=== PATIENT | female | born 1950 | race African-American/Black ===

== ENCOUNTER 2019-05-09 08:11 | Outpatient (CLI) | payer MEDICARE ==
--- NOTE | 2019-05-09 11:46 | PET Report ---
PET CT WHOLE BODY HISTORY: Right upper lobe lung mass. COMPARISON: No relevant comparative imaging. TECHNIQUE: F-18 FDG was administered via the left antecubital fossa. 75 minutes later, the patient u nderwent dedicated PET CT imaging from the skull base through the feet utilizing an integrated PET CT scanner. CT transmission images acquired are non-contrast and low dose. CT transmission images are acquired for lesion localization and attenuation correction. The patient's blood sugar level was doc umented to be 102 mg/dL. RADIOPHARMACEUTICAL: 13.601 mCi of F-18 FDG. FINDINGS: HEAD AND NECK: Physiologic activity demonstrated. No suspicious adenopathy. CHEST: Irregular FDG avid posterior right upper lobe lung mass measures 2.1 x 1.0 cm image 70, series 2. SUV max is 1.99. No other lung nodule or mass. No lymphadenopathy. ABDOMEN AND PELVIS: Physiologic activity in the liver, spleen, kidneys, collecting system and bowel. No suspicious adenopathy. MARROW: Physiologic activity demonstrated. No suspicious bone lesion. Additional Findings: None. IMPRESSION: 1. A 2.1 x 1.0 cm FDG avid right upper lobe lung mass suspicious for bronchogenic neoplasm. It is rel atively posterior and peripheral and may be accessible for CT-guided needle biopsy. 2. No evidence of metastasis. Signer Name: Ruddy De Luna MD Signed: 05/09/2019 11:42 AM Workstation Name: [id number]
== END 2019-05-09 08:12 | disposition home or self-care (01) ==
LOC: PET 08:11
PROVIDERS: ATTEND Specialist
DX: R91.8 Other nonspecific abnormal finding of lung field (principal)
CPT/HCPCS: 78815; 82962; A9552